=== PATIENT | female | born 1995 | race Caucasian/White ===

== ENCOUNTER 2023-08-22 19:05 | Emergency (ER) | payer MEDICAID, OTHER ==
[~2023-08-22] VITALS: Ht 165.1 cm; Wt 61.2 kg
[2023-08-22 19:40] VITALS: BP 94/79; PULSE 74; RESP 20; TEMP 97.2; O2SAT 98
[2023-08-22 21:44] VITALS: BP 97/57; PULSE 78; RESP 18; TEMP 98; O2SAT 99
== END 2023-08-22 21:45 | disposition home or self-care (01) ==
LOC: MED 19:05
DX: R56.9 Unspecified convulsions (principal); Z79.899 Other long term (current) drug therapy
CPT/HCPCS: 81025; 99282